=== PATIENT | female | born 1955 | race Caucasian/White ===

== ENCOUNTER 2016-10-26 08:44 | Emergency (ER) | payer OTHER ==
[~2016-10-26] VITALS: Ht 167.6 cm; Wt 117.9 kg
[2016-10-26] MEDS ORDERED: DICL30AD3 PO (08:59)
[2016-10-26] MEDS ORDERED: PROTONIX (08:59)
[2016-10-26] MEDS ORDERED: FENOFIBRATE (08:59)
[2016-10-26] MEDS ORDERED: LORA-259 PO (08:59)
[2016-10-26] MEDS ORDERED: LEVO50TA PO (08:59)
[2016-10-26] MEDS ORDERED: ZETIA (08:59)
[2016-10-26] MEDS ORDERED: ESTRADIOL (08:59)
[2016-10-26] MEDS ORDERED: LOSA25TA13 PO (08:59)
[2016-10-26] MEDS ORDERED: HYDROMORPHONE 1 MG/1 ML DISP.SYRIN IM ONE ×2 (09:00→09:15)
--- NOTE | 2016-10-26 09:18 | NUR ---
[facility] ADMINISTERTED, REMOVED PT FROM HARD-BACK BOARD. PT POSITIONED FOR COMFORT.
[2016-10-26] MEDS ORDERED: HYDROMORPHONE 2 MG/1 ML DISP.SYRIN ONE (09:20)
--- NOTE | 2016-10-26 11:16 | NUR ---
CT SCAN DONE, [facility] CALLED AND INFORMED. PRESENTLY PT RESTING, FAMILY AT THE BEDSIDE.
--- NOTE | 2016-10-26 11:35 | NUR ---
[facility] WAS CALLED EARLIER, DR ROME TALKING TO [facility] RICE AT THIS TIME.
--- NOTE | 2016-10-26 12:10 | NUR ---
[facility] CALLED TO INFORM PT DID NOT WANT TO GO TO [facility] AND PT D/C'D HOME.
--- NOTE | 2016-10-26 12:10 | NUR ---
PT DERCIDED TO GO HOME. STSTED SHE FELT GOOD AND DID NOT WANT TO GO TO [facility] [place]. PT GOTDRESSED AND TRANSFERED TO [facility]. P TOOK ALL BELONGINGS, PT'S AND CAREGIVER PRESENT AN THEY ARE TO DRIVE.
[2016-10-26 12:22] VITALS: BP 118/88
== END 2016-10-26 12:23 | disposition home or self-care (01) ==
LOC: ER 08:44
DX: M54.5 Low back pain (principal); M54.2 Cervicalgia; R51 Headache; I10 Essential (primary) hypertension; K21.9 Gastro-esophageal reflux disease without esophagitis; Z88.1 Allergy status to other antibiotic agents; Z88.8 Allergy status to other drugs, medicaments and biological substances; W10.9XXA Fall (on) (from) unspecified stairs and steps, initial encounter; Y93.89 Activity, other specified; Y99.8 Other external cause status; Y92.89 Other specified places as the place of occurrence of the external cause
CPT/HCPCS: 70450; 72125; 72131; A4663; J1170